=== PATIENT | female | born 1970 | race Caucasian/White ===

== ENCOUNTER 2019-02-19 08:39 | Day surgery (SDC) | payer OTHER ==
[~2019-02-19] VITALS: Ht 157.5 cm; Wt 61.4 kg
[~2019-02-19 08:39] MED LIST: MOTRIN
[2019-02-19 09:16] VITALS: Ht 157.5 cm; Wt 61.4 kg
[2019-02-19] MEDS ORDERED: ZANTAC (09:20)
[2019-02-19] MEDS ORDERED: NAPROXEN (09:20)
[2019-02-19] MEDS ORDERED: LISINOPRIL (09:20)
[2019-02-19 09:34] VITALS: BP 155/73; PULSE 67; RESP 16
[2019-02-19] MEDS ORDERED: MIDAZOLAM 1 MG/ML 2 ML INJ ONE ×2 (10:15)
[2019-02-19] MEDS ORDERED: FENTAnyl 50 MCG/ML VIAL ONE (10:16)
== END 2019-02-19 13:57 | disposition home or self-care (01) ==
LOC: GIL 08:39
PROVIDERS: ATTEND Internal Medicine Gastroenterology
DX: K92.1 Melena (principal); K29.30 Chronic superficial gastritis without bleeding; I10 Essential (primary) hypertension; K21.9 Gastro-esophageal reflux disease without esophagitis; K64.8 Other hemorrhoids
CPT/HCPCS: 43239; 45378; 84703; 88305; 88312; J2250; J3010; Z7610